=== PATIENT | female | born 1930 | race Caucasian/White ===

== ENCOUNTER 2018-01-15 12:41 | Inpatient (IN) ==
[2018-01-15] MEDS ORDERED: NITROGLYCERIN 2% OINT 1 INCH/GM PACK TOP STA (13:11)
[2018-01-15] MEDS ORDERED: ENOXAPARIN 100 MG/ML SYRINGE SUBCUT STA (13:11)
[2018-01-15] MEDS: NITROGLYCERIN SL 0.4 MG TABLET SL PRN ×2 (13:15→14:05)
[2018-01-15 13:45] LABS: Basophils % 0.2 % (0.0-0.8); Eosinophils % 0.2 % (0.00-10.9); Hematocrit 33.5 VOL% (35.7-47.0); Hemoglobin 11.1 GM/DL (12.0-16.0); Immature Granulocytes % 0.3 %; Immature Granulocytes Absolute 0.03 #; Lymphocytes # 0.8 10*3/uL (1.4-4.0); Lymphocytes % 7.4 % (21.3-54.2); Mean Corpuscular HGB Conc 33.1 GM/DL (32-36); Mean Corpuscular Hemoglobin 31 PG (27-34); Mean Corpuscular Volume 94.6 FL (87-102); Mean Platelet Volume 11.4 FL (9.6-12.0); Monocytes # 0.3 10*3/uL (0.11-0.8); Monocytes % 3.3 % (1.7-12.7); Neutrophils # 9.1 10*3/uL (1.4-7.4); Neutrophils % 88.6 % (38.7-73.9); Platelet Count 176 T/CUMM (130-400); Red Blood Count 3.54 MC/CUMM (3.8-5.5); Red Cell Distribution Width 13.4 % (9.3-17.3); White Blood Count 10.3 T/CUMM (4-12)
[2018-01-15] MEDS ORDERED: MORPHINE 4 MG/1 ML VIAL IV STA (14:32)
[2018-01-15] MEDS ORDERED: ONDANSETRON 4 MG/2 ML VIAL IV STA (14:32)
[2018-01-15 14:41] LABS: Calcium 9.4 MG/DL (8.5-10.1); Osmolality,Calculated 284.4 MOS/KG (273-304); Potassium 3.7 MMOL/L (3.5-5.1)
[2018-01-15] MEDS ORDERED: TIROFIBAN 5,000 MCG/100 ML PREMIX IV ONE (14:53)
[2018-01-15] MEDS ORDERED: MIDAZOLAM 2 MG/2 ML VIAL ONE (15:28)
[2018-01-15] MEDS ORDERED: fentaNYL 100 MCG/2 ML VIAL ONE (15:28)
[2018-01-15] MEDS ORDERED: TIROFIBAN IV ONE (15:47)
[2018-01-15] MEDS ORDERED: ASPIRIN 325 MG TABLET ONE (15:49)
[2018-01-15] MEDS ORDERED: TIROFIBAN 5,000 MCG/100 ML PREMIX IV SCH (16:00)
[2018-01-15] MEDS ORDERED: LABETALOL 20 MG/4 ML SYRINGE IV ONE (16:52)
[2018-01-15] MEDS ORDERED: ACETAMINOPHEN 325 MG TABLET PO PRN (17:03)
[2018-01-15] MEDS ORDERED: ATORVASTATIN 40 MG TABLET PO ONE ×2 (17:03→21:00)
[2018-01-15] MEDS ORDERED: TICAGRELOR 90 MG TABLET ONE (17:04)
[2018-01-15] MEDS ORDERED: AMITRIPTYLINE 25 MG TABLET PO PRN (17:08)
[2018-01-15] MEDS: MAGNESIUM CHLORIDE 64 MG TABLET PO SCH (20:29)
[2018-01-15] MEDS: METOPROLOL SUCCINATE XL 25 MG TABLET PO SCH (20:29)
[2018-01-15 21:32] LABS: CKMB % 14.1 %
[2018-01-15 21:38] LABS: Troponin I Only 10.7 NG/ML (0.00-0.045)
[2018-01-16 05:26] LABS: Basophils % 0.3 % (0.0-0.8); Eosinophils % 0.3 % (0.00-10.9); Hematocrit 30.7 VOL% (35.7-47.0); Hemoglobin 10.5 GM/DL (12.0-16.0); Immature Granulocytes % 0.4 %; Immature Granulocytes Absolute 0.03 #; Lymphocytes # 0.8 10*3/uL (1.4-4.0); Lymphocytes % 10.1 % (21.3-54.2); Mean Corpuscular HGB Conc 34.2 GM/DL (32-36); Mean Corpuscular Hemoglobin 31 PG (27-34); Mean Corpuscular Volume 91.4 FL (87-102); Mean Platelet Volume 9.8 FL (9.6-12.0); Monocytes # 0.7 10*3/uL (0.11-0.8); Monocytes % 8.9 % (1.7-12.7); Neutrophils # 6.1 10*3/uL (1.4-7.4); Platelet Count 221 T/CUMM (130-400); Red Blood Count 3.36 MC/CUMM (3.8-5.5); Red Cell Distribution Width 13.4 % (9.3-17.3); White Blood Count 7.6 T/CUMM (4-12)
[2018-01-16 05:56] LABS: CKMB % 13.1 %; Osmolality,Calculated 277.5 MOS/KG (273-304); Potassium 3.6 MMOL/L (3.5-5.1)
[2018-01-16] MEDS: LEVOTHYROXINE 50 MCG TABLET PO SCH (05:56)
[2018-01-16 05:59] LABS: Troponin I Only 25.5 NG/ML (0.00-0.045)
[2018-01-16] MEDS ORDERED: ASPIRIN EC 81 MG TABLET PO SCH (09:00)
[2018-01-16] MEDS: METOPROLOL SUCCINATE XL 25 MG TABLET PO SCH ×2 (09:46→21:15)
[2018-01-16] MEDS: TICAGRELOR 90 MG TABLET PO SCH ×2 (09:47→21:15)
[2018-01-16] MEDS: traMADol 50 MG TABLET PO SCH (09:47)
[2018-01-16] MEDS: ASPIRIN EC 81 MG TABLET PO SCH (09:47)
[2018-01-16] MEDS: PANTOPRAZOLE 40 MG TABLET PO SCH (09:47)
[2018-01-16] MEDS: MONTELUKAST 10 MG TABLET PO SCH (09:47)
[2018-01-16] MEDS: MAGNESIUM CHLORIDE 64 MG TABLET PO SCH ×2 (09:47→21:15)
[2018-01-16] MEDS: MULTIVITAMIN (CENTRUM) TABLET PO SCH (09:47)
[2018-01-17] MEDS: LEVOTHYROXINE 50 MCG TABLET PO SCH (06:07)
[2018-01-17 08:13] VITALS: BP 146/84
[2018-01-17] MEDS ORDERED: CLOPIDOGREL 300 MG TABLET PO ONE (08:21)
[2018-01-17] MEDS: MAGNESIUM CHLORIDE 64 MG TABLET PO SCH (09:13)
[2018-01-17] MEDS: ASPIRIN EC 81 MG TABLET PO SCH (09:13)
[2018-01-17] MEDS: MULTIVITAMIN (CENTRUM) TABLET PO SCH (09:13)
[2018-01-17] MEDS: MONTELUKAST 10 MG TABLET PO SCH (09:13)
[2018-01-17] MEDS: METOPROLOL SUCCINATE XL 25 MG TABLET PO SCH (09:13)
[2018-01-17] MEDS: traMADol 50 MG TABLET PO SCH (09:13)
[2018-01-17] MEDS: PANTOPRAZOLE 40 MG TABLET PO SCH (09:13)
[2018-01-17] MEDS ORDERED: ATORVASTATIN 20 MG TABLET PO SCH (21:00)
[2018-01-18] MEDS ORDERED: CLOPIDOGREL 75 MG TABLET PO SCH (09:00)
== END 2018-01-17 11:22 | disposition home or self-care (01) | DRG 247 ==
LOC: N.ED 12:41 → N.CC 15:30 → N.TELEN 01-16 16:36
PROVIDERS: ADMIT Internal Medicine Cardiovascular Disease; ATTEND Internal Medicine Cardiovascular Disease

== ENCOUNTER 2021-01-28 20:32 | Inpatient (IN) ==
[2021-01-28] MEDS ORDERED: DEXTROSE 50% 25 GM/50 ML SYRINGE IV ONE (20:43)
[2021-01-28] MEDS ORDERED: DEXTROSE 50% 25 GM/50 ML VIAL IV STA ×2 (21:00→22:46)
[2021-01-28 21:09] LABS: Basophils % 0.1 % (0.0-0.8); Eosinophils % 0.3 % (0.00-10.9); Hematocrit 33.7 VOL% (35.7-47.0); Hemoglobin 10.6 GM/DL (12.0-16.0); Immature Granulocytes % 0.4 %; Immature Granulocytes Absolute 0.04 #; Lymphocytes # 1.2 10*3/uL (1.4-4.0); Lymphocytes % 12.1 % (21.3-54.2); Mean Corpuscular HGB Conc 31.5 GM/DL (32-36); Mean Corpuscular Volume 98.8 FL (87-102); Mean Platelet Volume 9.8 FL (9.6-12.0); Monocytes % 7.1 % (1.7-12.7); Platelet Count 266 T/CUMM (130-400); Red Blood Count 3.41 MC/CUMM (3.8-5.5); White Blood Count 10.3 T/CUMM (4-12)
[2021-01-28 21:27] LABS: Alanine Aminotransferase 25 U/L (13-56); Alkaline Phosphatase 125 U/L (45-117); Aspartate Amino Transferase 29 U/L (0-37); Bilirubin,Total < 0.39 MG/DL (0.2-1.0); Blood Urea Nitrogen 25 MG/DL (7-18); CKMB % 6.6 %; Calcium 9.7 MG/DL (8.5-10.1); Carbon Dioxide 19 MMOL/L (21-32); Estimated Glom Filtration Rate 30 ML/MIN; Osmolality,Calculated 276.5 MOS/KG (273-304); Potassium 4.3 MMOL/L (3.5-5.1); Sodium 139 MMOL/L (136-145); Total Protein 6.9 G/DL (6.4-8.2)
[2021-01-28 21:35] LABS: Glucose 26 MG/DL (74-106)
[2021-01-28 22:59] LABS: Bilirubin,Urine Negative (Negative); Blood, Urine Negative (Negative); Glucose,Urine (UA) 50 mg/dL (Negative); Ketones,Urine Negative (Negative); Mucus,Urine Occasional /LPF (Occasional); Nitrite,Urine Negative (Negative); Protein,Urine Negative; RBC,Urine 1 /HPF (0-4); Squamous Epithelial Cell,Urine Occasional /HPF (0-10); Urine Appearance CLEAR (Clear); Urine Color Yellow (Yellow); Urine Specific Gravity 1.006 (1.001-1.035); Urine Urobilinogen < 2.0 EU/DL (0.2-1.0)
[2021-01-28] MEDS ORDERED: DEXTROSE 10% 1,000 ML IV SCH (23:00)
[2021-01-28] MEDS ORDERED: GLUCAGON 1 MG VIAL IM PRN (23:07)
[2021-01-28] MEDS ORDERED: ACETAMINOPHEN 325 MG TABLET PO PRN (23:07)
[2021-01-28] MEDS ORDERED: ONDANSETRON 4 MG/2 ML VIAL IV PRN (23:07)
[2021-01-28] MEDS ORDERED: DEXTROSE 5% 1,000 ML IV SCH (23:30)
[2021-01-28] MEDS: DEXTROSE 50% 25 GM/50 ML VIAL IV PRN (23:40)
[2021-01-29] MEDS: DEXTROSE 50% 25 GM/50 ML VIAL IV PRN ×7 (00:26→10:36)
[2021-01-29] MEDS ORDERED: DEXTROSE 10% 250 ML IV ONE (02:51)
[2021-01-29] MEDS ORDERED: DEXTROSE 10% 1,000 ML IV SCH (03:00)
[2021-01-29] MEDS: HYDROCORTISONE 100 MG VIAL IV SCH ×3 (04:10→20:35)
[2021-01-29] MEDS ORDERED: NITROGLYCERIN SL 0.4 MG TABLET SL PRN (05:49)
[2021-01-29] MEDS ORDERED: diphenhydrAMINE CAP 25 MG CAPSULE PO PRN (05:49)
[2021-01-29] MEDS ORDERED: AMITRIPTYLINE 25 MG TABLET PO PRN (05:49)
[2021-01-29] MEDS: MULTIVITAMIN (CENTRUM) TABLET PO SCH (08:44)
[2021-01-29] MEDS: ASPIRIN EC 81 MG TABLET PO SCH (08:44)
[2021-01-29] MEDS: MAGNESIUM CHLORIDE 64 MG TABLET PO SCH (08:44)
[2021-01-29] MEDS: hydroCHLOROthiazide 12.5 MG CAPSULE PO SCH (08:44)
[2021-01-29] MEDS: LEVOTHYROXINE 75 MCG TABLET PO SCH (08:44)
[2021-01-29] MEDS: MONTELUKAST 10 MG TABLET PO SCH (08:45)
[2021-01-29] MEDS: CLOPIDOGREL 75 MG TABLET PO SCH (08:45)
[2021-01-29] MEDS: METOPROLOL SUCCINATE XL 25 MG TABLET PO SCH (08:46)
[2021-01-29] MEDS ORDERED: traMADol 50 MG TABLET PO PRN (09:00)
[2021-01-29 09:37] LABS: Calcium 9.8 MG/DL (8.5-10.1); Osmolality,Calculated 275.7 MOS/KG (273-304); Potassium 5.4 MMOL/L (3.5-5.1)
[2021-01-29] MEDS: DEXTROSE 10% 500 ML IV SCH ×3 (10:27→18:59)
[2021-01-29] MEDS ORDERED: CALCIUM CARBONATE CHEW 500 MG TABLET PO PRN (20:25)
[2021-01-29] MEDS: ATORVASTATIN 20 MG TABLET PO SCH (20:43)
[2021-01-30 04:32] LABS: Basophils % 0.1 % (0.0-0.8); Hematocrit 34.7 VOL% (35.7-47.0); Immature Granulocytes % 0.7 %; Immature Granulocytes Absolute 0.08 #; Lymphocytes # 0.8 10*3/uL (1.4-4.0); Lymphocytes % 7.1 % (21.3-54.2); Mean Corpuscular HGB Conc 31.7 GM/DL (32-36); Mean Corpuscular Volume 98.3 FL (87-102); Mean Platelet Volume 9.7 FL (9.6-12.0); Monocytes % 2.5 % (1.7-12.7); Neutrophils % 89.6 % (38.7-73.9); Platelet Count 258 T/CUMM (130-400); Red Blood Count 3.53 MC/CUMM (3.8-5.5)
[2021-01-30] MEDS: HYDROCORTISONE 100 MG VIAL IV SCH (04:51)
[2021-01-30 05:01] LABS: Calcium 9.4 MG/DL (8.5-10.1); Osmolality,Calculated 277.8 MOS/KG (273-304); Potassium 5.1 MMOL/L (3.5-5.1)
[2021-01-30] MEDS: MULTIVITAMIN (CENTRUM) TABLET PO SCH (08:29)
[2021-01-30] MEDS: ASPIRIN EC 81 MG TABLET PO SCH (08:29)
[2021-01-30] MEDS: MONTELUKAST 10 MG TABLET PO SCH (08:29)
[2021-01-30] MEDS: MAGNESIUM CHLORIDE 64 MG TABLET PO SCH (08:29)
[2021-01-30] MEDS: hydroCHLOROthiazide 12.5 MG CAPSULE PO SCH (08:29)
[2021-01-30] MEDS: METOPROLOL SUCCINATE XL 25 MG TABLET PO SCH (08:30)
[2021-01-30] MEDS: LEVOTHYROXINE 75 MCG TABLET PO SCH (08:30)
[2021-01-30] MEDS: DEXTROSE 10% 500 ML IV SCH (08:38)
[2021-01-30] MEDS: CLOPIDOGREL 75 MG TABLET PO SCH (09:22)
[2021-01-30] MEDS: ATORVASTATIN 20 MG TABLET PO SCH (20:27)
[2021-01-31 04:31] LABS: Calcium 9.2 MG/DL (8.5-10.1); Osmolality,Calculated 279.5 MOS/KG (273-304); Potassium 4.7 MMOL/L (3.5-5.1)
[2021-01-31 07:37] VITALS: BP 179/83
[2021-01-31] MEDS: MONTELUKAST 10 MG TABLET PO SCH (08:09)
[2021-01-31] MEDS: ASPIRIN EC 81 MG TABLET PO SCH (08:09)
[2021-01-31] MEDS: METOPROLOL SUCCINATE XL 25 MG TABLET PO SCH (08:09)
[2021-01-31] MEDS: MAGNESIUM CHLORIDE 64 MG TABLET PO SCH (08:09)
[2021-01-31] MEDS: MULTIVITAMIN (CENTRUM) TABLET PO SCH (08:09)
[2021-01-31] MEDS: LEVOTHYROXINE 75 MCG TABLET PO SCH (08:10)
[2021-01-31] MEDS: hydroCHLOROthiazide 12.5 MG CAPSULE PO SCH (08:10)
== END 2021-01-31 10:40 | disposition home or self-care (01) | DRG 918 ==
LOC: N.ED 20:32 → N.EDINP 01-29 02:46 → N.ICU 01-29 03:14
PROVIDERS: ADMIT Internal Medicine; ATTEND Internal Medicine